=== PATIENT | female | born 1990 | race Caucasian/White ===

== ENCOUNTER 2016-09-05 19:34 | Emergency (ER) | payer MEDICAID ==
--- NOTE | 2016-09-05 20:11 | ER Document Report ---
ED Medical Screen (RME) - General Stated Complaint: VAGINAL BLEEDING Notes: 26 yo female c/o 10 wks , c/o lower abdominal cramping and vaginal bleeding x 2 days. - Related Data Allergies/Adverse Reactions: ibuprofen Adverse Reaction (Intermediate, Verified 01/21/14 14:21) Migraine Past Medical History Past Surgical History: Reports: Hx Section - Immunizations Immunizations up to date: Yes Hx Diphtheria, Pertussis, Tetanus Vaccination: Yes
[2016-09-05] MEDS ORDERED: OXYCODONE-ACETAMINOPHEN 5-325 MG TABLET PO ONE (20:12)
[2016-09-05 20:47] LABS: ABSOLUTE BASOPHILS # (AUTO) 0.1 10^3/uL (0.0-0.2); ABSOLUTE EOSINOPHILS # (AUTO) 0.1 10^3/uL (0.0-0.6); ABSOLUTE LYMPHOCYTES (AUTO) 2.5 10^3/uL (0.5-4.7); ABSOLUTE NEUT (AUTO) 10.6 10^3/uL (1.7-8.2); BASOPHILS % (AUTO) 0.4 % (0-2); HEMATOCRIT 35.5 % (36.0-47.0); HEMOGLOBIN 11.7 g/dL (12.0-15.5); HGB HCT DIFFERENCE -0.4; LYMPHOCYTES % (AUTO) 17.3 % (13-45); MEAN CORPUSCULAR HEMOGLOBIN 27.4 pg (27.0-33.4); MEAN CORPUSCULAR HGB CONC 32.9 g/dL (32.0-36.0); MEAN CORPUSCULAR VOLUME 83 fl (80-97); MONOCYTES % (AUTO) 6.7 % (3-13); RED BLOOD COUNT 4.26 10^6/uL (3.72-5.28); RED CELL DISTRIBUTION WIDTH 14.4 % (11.5-14.0); SEGMENTED NEUTROPHILS % (AUTO) 74.6 % (42-78); WHITE BLOOD COUNT 14.2 10^3/uL (4.0-10.5)
[2016-09-05] MEDS ORDERED: ONDANSETRON HCL INJ/PF 4 MG/2 ML SDV IV ONE (22:34)
[2016-09-05] MEDS ORDERED: MORPHINE SULFATE 10 MG/ML INJ IV ONE (22:34)
[2016-09-05] MEDS ORDERED: NORMAL SALINE 1000 ML 1,000 ML IV ONE (22:34)
--- NOTE | 2016-09-05 22:39 | ER Document Report ---
ED GI/ - General Time seen by provider: 22:15 Mode of Arrival: Ambulatory Information source: Patient TRAVEL OUTSIDE OF THE [place] IN LAST 30 DAYS: No - HPI Patient complains to provider of: Abdominal pain, , Vaginal bleeding Onset: Yesterday Timing/Duration: Sudden Quality of pain: Cramping Location: Suprapubic Menstrual period history: <LIN HYATT - Last Filed: 09/06/16 00:17> <VINCE CROWDER - Last Filed: 09/06/16 05:10> - General Chief Complaint: Vaginal Bleeding Stated Complaint: VAGINAL BLEEDING Notes: Patient is a 26 year old female presenting to the emergency department complaining of vaginal bleeding. Patient states she is 10.5 weeks . Patient states she was seen at another emergency department for some abdominal cramping about 2 weeks prior to day. Patient states she was given antibiotics for some type of vaginal infection; patient was not specific in details. Patient states that her symptoms have gotten worse since then and that she still has some cramping along with the vaginal bleeding. Patient states that her bleeding was light yesterday and today she has "gone through almost a whole bag of pads." Patient states that her bleeding is clots and she has never experienced this type of bleeding before. Patient has brought some of the clots with her to the ED. Patient is allergic to ibuprofen. Patient states she has given to 4 children and has never had any symptoms like this with her previous pregnancies. Patient states she has a history of anemia when she was younger. (LIN HYATT) - Related Data Allergies/Adverse Reactions: ibuprofen Adverse Reaction (Intermediate, Verified 01/21/14 14:21) Migraine Past Medical History - General Information source: Patient - Social History Smoking Status: Current Every Day Smoker Family History: None Patient has suicidal ideation: No Patient has homicidal ideation: No Past Surgical History: Reports: Hx Section - Immunizations Immunizations up to date: Yes Hx Diphtheria, Pertussis, Tetanus Vaccination: Yes <LIN HYATT - Last Filed: 09/06/16 00:17> <VINCE CROWDER - Last Filed: 09/06/16 05:10> - Medical History Notes: anemia as a child (LIN HYATT) Review of Systems - Review of Systems Constitutional: No symptoms reported EENT: No symptoms reported Cardiovascular: No symptoms reported Respiratory: No symptoms reported Gastrointestinal: See HPI, Abdominal pain Genitourinary: No symptoms reported Female Genitourinary: See HPI, , Vaginal bleeding Musculoskeletal: No symptoms reported Skin: No symptoms reported Hematologic/Lymphatic: No symptoms reported Neurological/Psychological: No symptoms reported -: Yes All other systems reviewed and negative <LIN HYATT - Last Filed: 09/06/16 00:17> Physical Exam - Vital signs Interpretation: Normal - General General appearance: Alert, Other - appears uncomfortable In distress: Mild - HEENT Head: Normocephalic, Atraumatic Eyes: Normal Pupils: PERRL Mucous membranes: Normal - Respiratory Respiratory status: No respiratory distress Chest status: Nontender Breath sounds: Normal Chest palpation: Normal - Cardiovascular Rhythm: Regular Heart sounds: Normal auscultation Murmur: No - Abdominal Inspection: Normal Distension: No distension Bowel sounds: Normal Tenderness: Tender - suprapubic tenderness to palpation Organomegaly: No organomegaly - Back Back: Normal, Nontender - no CVA tenderness - Extremities General upper extremity: Normal inspection, Normal ROM, Normal strength General lower extremity: Normal inspection, Normal ROM, Normal strength - Neurological Neuro grossly intact: Yes Cognition: Normal Orientation: AAOx4 Deb Coma Scale Eye Opening: Spontaneous Deb Coma Scale Verbal: Oriented Deb Coma Scale Motor: Obeys Commands Deb Coma Scale Total: 15 Speech: Normal - Psychological Associated symptoms: Normal affect, Normal mood - Skin Skin Temperature: Warm Skin Moisture: Dry <LIN HYATT - Last Filed: 09/06/16 00:17> Course - Laboratory Result Diagrams: 09/05/16 20:20 09/05/16 20:20 <LIN HYATT - Last Filed: 09/06/16 00:17> - Laboratory Result Diagrams: 09/05/16 20:20 09/05/16 20:20 <VINCE CROWDER - Last Filed: 09/06/16 05:10> - Re-evaluation Re-evalutation: 09/06/16 Patient was recently treated for urinary tract infection. Today she has flank pain, nausea, and blood in her urine as well as grossly infected urine. Patient will be given Rocephin and started on cefdinir. Patient is feeling better after fluids and medication. No further bleeding. She will be discharged home and is to follow-up with her [facility] [facility]. Ultrasound showing a well- appearing fetus. Return if any worsening or concerning symptoms. Understands agrees with plan. (VINCE CROWDER) - Vital Signs Vital signs: Temp Pulse Resp BP Pulse Ox 98.2 F 87 16 114/69 99 09/06/16 03:02 09/06/16 03:02 09/06/16 03:02 09/06/16 03:02 09/06/16 03:02 - Laboratory Laboratory results interpreted by me: 09/05/16 09/05/16 09/05/16 20:20 20:20 20:20 WBC 14.2 H Hgb 11.7 L Hct 35.5 L RDW 14.4 H Absolute Neutrophils 10.6 H Potassium 3.5 L Glucose 64 L Total Protein 6.1 L Albumin 3.3 L Beta HCG, Quant 30577.00 H Urine Protein Urine Blood Ur Leukocyte Esterase Urine Ascorbic Acid Urine HCG, Qual POSITIVE H 09/05/16 23:20 WBC Hgb Hct RDW Absolute Neutrophils Potassium Glucose Total Protein Albumin Beta HCG, Quant Urine Protein 100 H Urine Blood LARGE H Ur Leukocyte Esterase MODERATE H Urine Ascorbic Acid 20 H Urine HCG, Qual (LIN HYATT) (VINCE CROWDER) Discharge <LIN HYATT - Last Filed: 09/06/16 00:17> <VINCE CROWDER - Last Filed: 09/06/16 05:10> - Discharge Clinical Impression: Pyelonephritis Qualifiers: Weeks of gestation: 10 weeks Qualified Code(s): Z3A.10 - 10 weeks gestation of Condition: Stable Disposition: HOME, SELF-CARE Instructions: Pyelonephritis ([facility]), ([facility]) Prescriptions: Cefdinir [Omnicef 300 mg Capsule] 1 cap PO BID #28 capsule Referrals: GUILLERMINA ANDERSON MD [Primary Care Provider] - Follow up as needed Scribe Attestation: 09/06/16 05:10 I personally performed the services described in the documentation, reviewed and edited the documentation which was dictated to the scribe in my presence, and it accurately records my words and actions. (VINCE CROWDER) Scribe Documentation <LIN HYATT - Last Filed: 09/06/16 00:17> <VINCE CROWDER - Last Filed: 09/06/16 05:10> - Scribe Written by Scribe:: ALBERT ALBRECHT 09/06/16 0225 Acting as scribe for: Dr. Crowder (LIN HYATT) (VINCE CROWDER
[2016-09-05 23:18] LABS: ALANINE AMINOTRANSFERASE 10 U/L (9-52); ALBUMIN 3.3 g/dL (3.5-5.0); ALKALINE PHOSPHATASE 73 U/L (38-126); ANION GAP 12 (5-19); ASPARTATE AMINO TRANSFERASE 17 U/L (14-36); BILIRUBIN,TOTAL 0.2 mg/dL (0.2-1.3); BLOOD UREA NITROGEN 11 mg/dL (7-20); CALCIUM 8.7 mg/dL (8.4-10.2); CARBON DIOXIDE 25 mmol/L (22-30); CHLORIDE 104 mmol/L (98-107); CREATININE RESULT 0.52 mg/dL (0.52-1.25); GLUCOSE 64 mg/dL (75-110); POTASSIUM 3.5 mmol/L (3.6-5.0); SODIUM 140.8 mmol/L (137-145); TOTAL PROTEIN 6.1 g/dL (6.3-8.2)
[2016-09-06 00:05] LABS: APPEARANCE,URINE CLOUDY; BILIRUBIN,URINE NEGATIVE (NEGATIVE); GLUCOSE, URINE NEGATIVE (NEGATIVE); KETONES,URINE NEGATIVE (NEGATIVE); LEUKOCYTE ESTERASE,URINE MODERATE (NEGATIVE); NITRITE,URINE NEGATIVE (NEGATIVE); PROTEIN,URINE 100 mg/dL (NEGATIVE); UROBILINOGEN,URINE NEGATIVE mg/dL (<2.0)
[2016-09-06] MEDS ORDERED: CEFTRIAXONE 1 GM/D5W RTU 50 ML IV ONE (00:18)
[2016-09-06] MEDS ORDERED: NORMAL SALINE 1000 ML 1,000 ML IV ONE (01:27)
[2016-09-06] MEDS ORDERED: MORPHINE SULFATE 10 MG/ML INJ IV ONE (01:45)
[2016-09-06 03:03] VITALS: BP 114/69
== END 2016-09-06 03:45 | disposition home or self-care (01) ==
LOC: ER 19:34
DX: O23.01 Infections of kidney in pregnancy, first trimester (principal); N12 Tubulo-interstitial nephritis, not specified as acute or chronic; O20.9 Hemorrhage in early pregnancy, unspecified; O99.331 Smoking (tobacco) complicating pregnancy, first trimester; Z3A.10 10 weeks gestation of pregnancy; Z88.6 Allergy status to analgesic agent
CPT/HCPCS: 96376; 99284; 96361; 96375; 96365; 86900; 86901; 36415; 87040; 87086; 86850; 84702; 85025; 81025; 87088; 80053; 81001; 87186; 76817; 93976; J2270 ×2; J2405; J7030; J0696

== ENCOUNTER 2017-03-03 00:21 | Inpatient (IN) | payer MEDICAID ==
[2017-03-03 00:57] LABS: AMNISURE (ROM) POSITIVE (NEGATIVE)
[2017-03-03 00:58] LABS: APPEARANCE,URINE SLIGHTLY-CLOUDY; BILIRUBIN,URINE NEGATIVE (NEGATIVE); GLUCOSE, URINE NEGATIVE (NEGATIVE); KETONES,URINE NEGATIVE (NEGATIVE); LEUKOCYTE ESTERASE,URINE LARGE (NEGATIVE); NITRITE,URINE NEGATIVE (NEGATIVE); PROTEIN,URINE NEGATIVE (NEGATIVE); URINE SPECIFIC GRAVITY 1.003; UROBILINOGEN,URINE NEGATIVE mg/dL (<2.0)
[2017-03-03] MEDS ORDERED: MAGNESIUM SULFATE 4 GM/100 ML RTUPB IV ONE (01:16)
[2017-03-03] MEDS ORDERED: BETAMET ACET/BETAMET NA INJ 6 MG/1 ML IM ONE (01:16)
[2017-03-03] MEDS ORDERED: BETAMET ACET/BETAMET NA INJ 6 MG/1 ML ONE ×2 (01:16→01:21)
[2017-03-03] MEDS ORDERED: AMPICILLIN SOD INJ 2 GM VIAL ONE ×4 (01:17→22:01)
[2017-03-03] MEDS ORDERED: MAGNESIUM SULFATE 1 GM/25 ML IV ONE (01:21)
[2017-03-03 01:42] LABS: URINE BARBITURATES SCREEN NEGATIVE; URINE METHADONE SCREEN NEGATIVE; URINE PHENCYCLIDINE SCREEN NEGATIVE
[2017-03-03 02:01] LABS: URINE OPIATES LOW UNCONFIRMED POSITIVE
[2017-03-03] MEDS: MAGNESIUM SULFATE 20 GM/500 ML RTUINJ IV PRN ×2 (02:20→04:47)
[2017-03-03] MEDS ORDERED: AMPICILLIN SOD INJ 2 GM VIAL IV PRN (02:30)
[2017-03-03] MEDS ORDERED: AMPICILLIN SODIUM 2 GM in NORMAL SALINE 100 ML IV ONE (02:30)
--- NOTE | 2017-03-03 02:39 | RADIOLOGY REPORT (SQ) ---
EXAM DESCRIPTION: U/S OB 14+ TA/1 GEST W/DOPPLER COMPLETED DATE/TIME: 03/03/2017 2:01 am REASON FOR STUDY: no care COMPARISON: 09.05.16 TECHNIQUE: Static and Dynamic grayscale imaging performed of gravid uterus using transabdominal appr oac. Additional selected color Doppler and spectral images recorded. All stored on PACS. LIMITATIONS: None. FINDINGS: EGA: 33w 1d TOMASA: 04/20/17 EFW: 1872g +/- 277g PERCENTILE: Not available. LVP/MVP: 1.7 cm. PLACENTA: Anterior. PRESENTATION: Cephalic. ANATOMY: HEART RATE: 125 beats per minute. FOUR CHAMBER HEART: Visualized. THREE VESSEL CORD: Yes. CORD INSERTION: Not visualized. KIDNEYS AND BLADDER: Visualized. Appear normal. STOMACH: Visualized. Appears normal. SPINE: Normal as visualized. BRAIN AND LATERAL VENTRICLES: Not visualized. OTHER: No other significant finding. MATERNAL ADNEXA: Maternal ovaries not visualized. CERVICAL LENGTH: 3.6 cm Closed. OTHER: No other significant finding. IMPRESSION: Severe oligohydramnios. Maximum vertical pocket measures 1.7 cm. LIVING INTRAUTERINE . ESTIMATED GESTATIONAL AGE 33 weeks and 1 day Limited anatomic survey ; intracranial structures and cord insertion are not well visualized. Trimester of : Third trimester - 28 weeks to delivery. TECHNICAL DOCUMENTATION: JOB ID: [id number] [employer]- All Rights Reserved
[2017-03-03 02:40] LABS: ABSOLUTE BASOPHILS # (AUTO) 0.1 10^3/uL (0.0-0.2); ABSOLUTE EOSINOPHILS # (AUTO) 0.1 10^3/uL (0.0-0.6); ABSOLUTE LYMPHOCYTES (AUTO) 2.7 10^3/uL (0.5-4.7); ABSOLUTE MONOCYTES (AUTO) 1.1 10^3/uL (0.1-1.4); ABSOLUTE NEUT (AUTO) 13.4 10^3/uL (1.7-8.2); BASOPHILS % (AUTO) 0.6 % (0-2); EOSINOPHILS % (AUTO) 0.6 % (0-6); HEMATOCRIT 36.2 % (36.0-47.0); HEMOGLOBIN 11.7 g/dL (12.0-15.5); HGB HCT DIFFERENCE -1.1; LYMPHOCYTES % (AUTO) 15.5 % (13-45); MEAN CORPUSCULAR HEMOGLOBIN 28.2 pg (27.0-33.4); MEAN CORPUSCULAR HGB CONC 32.3 g/dL (32.0-36.0); MEAN CORPUSCULAR VOLUME 87 fl (80-97); MONOCYTES % (AUTO) 6.1 % (3-13); RED BLOOD COUNT 4.15 10^6/uL (3.72-5.28); RED CELL DISTRIBUTION WIDTH 14.4 % (11.5-14.0); SEGMENTED NEUTROPHILS % (AUTO) 77.2 % (42-78); WHITE BLOOD COUNT 17.3 10^3/uL (4.0-10.5)
[2017-03-03 03:31] LABS: ADD HIVPANEL? YES
[2017-03-03] MEDS ORDERED: OXYTOCIN/NORMAL SALINE 20 UNIT/1,000 ML RTUINJ ONE ×2 (04:30→12:15)
[2017-03-03] MEDS: RINGERS SOLUTION,LACTATED 1,000 ML IV PRN ×2 (04:45→14:48)
[2017-03-03] MEDS: AMPICILLIN SODIUM 2 GM in NORMAL SALINE 100 ML IV SCH ×3 (08:26→22:08)
[2017-03-03 09:54] LABS: CHLAM PCR NOT DETECTED (NOT DETECT)
[2017-03-03] MEDS ORDERED: EPHEDRINE SULFATE INJ 50 MG/1 ML AMPULE ONE (12:09)
[2017-03-03] MEDS ORDERED: BUPIVACAINE HCL 0.25 % INJ/PF (2.5 MG/1 ML) 30 ML VIAL ONE (12:10)
[2017-03-03] MEDS ORDERED: FENTANYL/BUPIVACAINE/NS/PF 200 MCG/100 ML RTUINJ EPI ONE (12:10)
[2017-03-03] MEDS ORDERED: LIDOCAINE 1% INJ-PF (10 MG/ML) 30 ML SDV ONE (12:15)
[2017-03-03] MEDS ORDERED: MISOPROSTOL 0.2 MG TABLET ONE (12:16)
[2017-03-03] MEDS ORDERED: MEASLES,MUMPS&RUBELLA VACC/PF 0.5 ML VIAL SUBCUT PRN (19:06)
[2017-03-03] MEDS ORDERED: DIPH/PERTUSS(ACELL)/TETANUS VAC/PF 0.5 ML SYR (>=10YO) IM PRN (19:06)
[2017-03-03] MEDS ORDERED: ZOLPIDEM TARTRATE 5 MG TABLET PO PRN (19:06)
[2017-03-03] MEDS ORDERED: ACETAMINOPHEN WITH CODEINE #3 TABLET PO PRN ×2 (19:06)
[2017-03-03] MEDS ORDERED: BENZOCAINE/MENTHOL AEROSOL SPRAY 56 ML TOP PRN (19:06)
[2017-03-03] MEDS ORDERED: OXYTOCIN/NORMAL SALINE 20 UNIT/1,000 ML RTUINJ IV PRN (19:06)
[2017-03-03] MEDS ORDERED: DIBUCAINE 1% OINTMENT 28 GM TP PRN (19:06)
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
[2017-03-03] MEDS ORDERED: IBUPROFEN 800 MG TABLET PO SCH (22:00)
[2017-03-04] MEDS: AMPICILLIN SODIUM 2 GM in NORMAL SALINE 100 ML IV SCH (02:31)
[2017-03-04 07:21] LABS: HEMATOCRIT 32.3 % (36.0-47.0); HEMOGLOBIN 10.5 g/dL (12.0-15.5); HGB HCT DIFFERENCE -0.8; MEAN CORPUSCULAR HEMOGLOBIN 28.3 pg (27.0-33.4); MEAN CORPUSCULAR HGB CONC 32.6 g/dL (32.0-36.0); MEAN CORPUSCULAR VOLUME 87 fl (80-97); RED BLOOD COUNT 3.72 10^6/uL (3.72-5.28); RED CELL DISTRIBUTION WIDTH 14.4 % (11.5-14.0); WHITE BLOOD COUNT 19.9 10^3/uL (4.0-10.5)
[2017-03-04] MEDS: PRENATAL VITAMIN W-O CA NO5/FE FUMARATE/FA CAPSULE PO SCH (09:33)
[2017-03-04] MEDS: DOCUSATE SODIUM 100 MG CAPSULE PO SCH ×2 (09:34→17:24)
[2017-03-04] MEDS: SENNOSIDES/DOCUSATE 8.6-50 MG 1 EACH TABLET PO SCH (09:34)
[2017-03-04] MEDS: FERROUS SULFATE 325 MG TABLET PO SCH ×2 (09:35→17:24)
--- NOTE | 2017-03-04 14:14 | PDOC PROGRESS REPORT ---
Subjective-OB Subjective: Post Delivery Day:1 26 year old s/p ppd1. Ambulating and voiding without difficulty. Denies any needs at this time Physical Exam (OB) Vital Signs: Temp Pulse Resp BP Pulse Ox 97.6 F 87 17 116/71 100 03/04/17 08:16 03/04/17 08:16 03/04/17 08:16 03/04/17 08:16 03/04/17 08:16 Intake & Output 03/03/17 03/04/17 03/05/17 06:59 06:59 06:59 Intake Total 100 Balance 100 Weight 70.3 kg - General General Appearance: Appears well In distress: None - Episiotomy/Laceration Site Condition: N/A - Lochia Lochia Amount: Scant < 10 ml Lochia Color: Rubra/Red - Abdomen Description: Soft Hernia Present: No Fundal Description: Firm, Midline Fundal Height: u/u - u/2 - Respiratory Respiratory Status: No respiratory distress - Extremities Upper extremity: Normal inspection Lower extremities: Normal inspection - Neurological Cognition: Normal Orientation: AAOx4 - Psychological Associated symptoms: Normal affect, Normal mood Objective-Diagnostic Laboratory: 03/04/17 06:52 03/04/17 06:52 WBC 19.9 H RBC 3.72 Hgb 10.5 L Hct 32.3 L MCV 87 MCH 28.3 MCHC 32.6 RDW 14.4 H Plt Count 168 Assessment and Plan(PN) - Assessment and Plan (1) delivered vaginally, 1,750-1,999 grams, 35-36 completed weeks Is this a current diagnosis for this admission?: Yes (2) Insufficient care, delivered, current hospitalization Is this a current diagnosis for this admission?: Yes (3) premature rupture of membranes Qualifiers: PROM onset of labor timing: unspecified duration between rupture of membranes and onset of labor Qualified Code(s): O42.919 - premature rupture of membranes, unspecified as to length of time between rupture and onset of labor, unspecified trimester Is this a current diagnosis for this admission?: Yes (4) Acute blood loss anemia Is this a current diagnosis for this admission?: Yes - Time Spent with Patient Time with patient: Less than 15 minutes Medications reviewed and adjusted accordingly: Yes - Disposition Anticipated Discharge: Home Within: within 24 hours
[2017-03-04 15:37] LABS: HEPATITIS C VIRUS AB <0.1 s/co ratio (0.0-0.9)
--- NOTE | 2017-03-05 08:54 | PDOC PROGRESS REPORT ---
Subjective-OB Subjective: Post Delivery Day: 26 year old. Denies any needs at this time OOB in halls with FOB, said the baby cannot go home for possible 5 days, she took a pain medication when her water broke and it showed up on drug screen. Holding baby on rounds, FOB with pt, denies depression, goes to [facility], will make an appointment to see them, smokes 10 day but knows not to smoke around baby. Care at [facility]. Breast feeding but now pumping and dumping per nursery. Tearful when talking about baby and leaving her Physical Exam (OB) Vital Signs: Temp Pulse Resp BP Pulse Ox 98.2 F 58 L 16 109/64 100 03/05/17 08:07 03/05/17 08:07 03/05/17 08:07 03/05/17 08:07 03/05/17 08:07 Intake & Output 03/04/17 03/05/17 03/06/17 06:59 06:59 06:59 Intake Total 100 400 Balance 100 400 - Lochia Lochia Amount: Scant < 10 ml Lochia Color: Rubra/Red - Abdomen Description: Soft, Flat Hernia Present: No Fundal Description: Firm Fundal Height: u/u - u/2 Objective-Diagnostic Laboratory: 03/04/17 06:52 Assessment and Plan(PN) - Assessment and Plan (1) Acute blood loss anemia Is this a current diagnosis for this admission?: Yes (2) Insufficient care, delivered, current hospitalization Is this a current diagnosis for this admission?: Yes (3) delivered vaginally, 1,750-1,999 grams, 35-36 completed weeks Is this a current diagnosis for this admission?: Yes (4) premature rupture of membranes Qualifiers: PROM onset of labor timing: unspecified duration between rupture of membranes and onset of labor Qualified Code(s): O42.919 - premature rupture of membranes, unspecified as to length of time between rupture and onset of labor, unspecified trimester Is this a current diagnosis for this admission?: Yes - Time Spent with Patient Time with patient: Less than 15 minutes Smoking Education Provided: Over 3 minutes Medications reviewed and adjusted accordingly: Yes - Disposition Anticipated Discharge: Home Within: Other - home today, discussed making appt with [facility], no smoking around baby, no TCH or opiates. FOB states he is oing to throw them away Will repeat CBC today
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
[2017-03-05 09:19] LABS: HEMATOCRIT 33.3 % (36.0-47.0); HEMOGLOBIN 10.9 g/dL (12.0-15.5); HGB HCT DIFFERENCE -0.6; MEAN CORPUSCULAR HEMOGLOBIN 28.5 pg (27.0-33.4); MEAN CORPUSCULAR HGB CONC 32.8 g/dL (32.0-36.0); MEAN CORPUSCULAR VOLUME 87 fl (80-97); RED BLOOD COUNT 3.84 10^6/uL (3.72-5.28); RED CELL DISTRIBUTION WIDTH 14.4 % (11.5-14.0); WHITE BLOOD COUNT 12.2 10^3/uL (4.0-10.5)
--- NOTE | 2017-03-05 09:41 | Delivery Summary ---
Del Sum A-C Datetime Report Generated by CPN: 03/05/2017 09:41 DELIVERY PERSONNEL DELIVERY PERSONNEL: [phone] Delivery Doctor:: Naomi Ignacio MD Anesthesiologist:: Brandon Raphael MD Labor and Delivery Nurse:: Amanda Link RNtelecommunication engineer Nurse:: Lorena Dempsey RN Nursery Nurse:: Jillian Smith RN Nursery Nurse:: Tyra Reaves RN Engine Testing Supervisor/BRASSWIND INSTRUMENT REPAIRER: Pham Vang, ASSOCIATE PROFESSOR OF SURGERY MATERNAL INFORMATION Delivery Anesthesia: Epidural Medications After Delivery: Pitocin Drip 20 Units/1000ml NSS Estimated Blood Loss (ml): 200 Maternal Complications: None; Premature Rupture of Membranes Provider Comments: manual extraction of placenta performed secondary to evusion of umbilical cord. uterine exploration revealed no abnormalities post extraction LABOR SUMMARY EDC: 03/31/2017 00:00 No. Babies in Womb: 1 Attempted: Yes Labor Anesthesia: Epidural LABOR INFORMATION Reason for Induction: Premature Rupture of Membranes Onset of Labor: 03/03/2017 14:01 Complete Dilatation: 03/03/2017 18:34 Cervical Ripening Agents: Other Oxytocin: Induction Group B Beta Strep: unknown Group B Beta Strep: 1 NO GROUP B STREPTOCOCCUS RECOVERED Antibiotics # of Doses: 3 Antibiotics Time of Last Dose: 1440 Name of Antibiotic Given: ampicillan Steroids Given: Partial Course Reason Steroids Not Administered: Other MEMBRANES Membranes Rupture Method: Spontaneous Rupture of Membranes: 02/28/2017 01:00 Length of Rupture (hr): 89.75 Amniotic Fluid Color: Clear Amniotic Fluid Amount: Small Amniotic Fluid Odor: Normal STAGES OF LABOR Stage 1 hr: 4 Stage 1 min: 33 Stage 2 hr: 0 Stage 2 min: 11 Stage 3 hr: 0 Stage 3 min: 8 Total Time in Labor hr: 4 Total Time in Labor min: 52 VAGINAL DELIVERY Episiotomy: None Laceration Extension: N/A Laceration Type: None Sponge Count Correct: N/A Sharps Count Correct: N/A CSECTION DELIVERY Primary Indication: N/A Secondary Indication: N/A CSection Incision: N/A BABY A INFORMATION Delivery Date/Time: 03/03/2017 18:45 Method of Delivery: Vaginal Born in Route : No : Successful Forceps: N/A Vacuum Extraction: N/A Shoulder Dystocia : No PRESENTATION/POSITION BABY A Presentation: Cephalic Cephalic Presentation: Vertex Vertex Position: Right Occipital Anterior Breech Presentation: N/A PLACENTA INFORMATION BABY A Placenta Delivery Time : 03/03/2017 18:53 Placenta Method of Delivery: Manual Removal Placenta Status: Delivered SCORES BABY A Heart Rate 1 min: >100 bpm Resp Effort 1 min: Good Cry Reflex Irritability 1 min: Cough or Sneeze or Pulls Away Muscle Tone 1 min: Active Motion Color 1 min: Blue/Pale Resuscitation Effort 1 min: Tactile Stimulation SCORE 1 MIN: 8 Heart Rate 5 min: >100 bpm Resp Effort 5 min: Good Cry Reflex Irritability 5 min: Cough or Sneeze or Pulls Away Muscle Tone 5 min: Active Motion Color 5 min: Body Higden, Extremities Blue Resuscitation Effort 5 min: Tactile Stimulation SCORE 5 MIN: 9 INFANT INFORMATION BABY A Gestational Age at Delivery: 36.0 Gestational Status: Late - 34- 36.6 Weeks Outcome : Liveborn Infant Condition : Stable Sex: Female IDENTIFICATION BABY A Verification Date/Time: 03/03/2017 19:24 ID Band Number: [id number] Mother's Name Verified: Yes Infant RN Verifying Infant: RLatonya Dempsey, RN/ K. Nathanael, RN WEIGHT/LENGTH BABY A Infant Birthweight (gm): 2001 Weight (lb): 4 Infant Weight (oz): 7 Infant Length (in): 17.13 Infant Length (cm): 43.51 CORD INFORMATION BABY A No. Cord Vessels: 3 Nuchal Cord : N/A Cord Blood Taken: Yes-For Eval (Mom's Blood Type - or O+) Infant Suction: None ASSESSMENT BABY A Infant Complications: Multiple Late Decels Physical Findings at Delivery: Within Normal Limits Respirations: Appears Normal Skin to Skin: No System Operator/ALS Called : No Care By: Jillian Smith, RN Transferred To: Remains with Mother BABY B INFORMATION : N/A SIGNATURES Signature: with User ID: [email or web address]
[2017-03-05 09:53] VITALS: BP 116/71
[2017-03-05] MEDS: DOCUSATE SODIUM 100 MG CAPSULE PO SCH (10:01)
[2017-03-05] MEDS: FERROUS SULFATE 325 MG TABLET PO SCH (10:01)
[2017-03-05] MEDS: SENNOSIDES/DOCUSATE 8.6-50 MG 1 EACH TABLET PO SCH (10:01)
[2017-03-05] MEDS: PRENATAL VITAMIN W-O CA NO5/FE FUMARATE/FA CAPSULE PO SCH (10:01)
== END 2017-03-05 13:15 | disposition home or self-care (01) | DRG 774 ==
LOC: LC 00:21 → LR 01:36 → 2S 21:15
PROVIDERS: ADMIT Student in an Organized Health Care Education/Training Program; ATTEND Student in an Organized Health Care Education/Training Program
PROC: 10E0XZZ Delivery of Products of Conception, External Approach (ICD-10-PCS; principal; 2017-03-03)
PROC: 3E033VJ Introduction of Other Hormone into Peripheral Vein, Percutaneous Approach (ICD-10-PCS; 2017-03-03)
PROC: 4A1HXCZ Monitoring of Products of Conception, Cardiac Rate, External Approach (ICD-10-PCS; 2017-03-03)
DX: O42.013 Preterm premature rupture of membranes, onset of labor within 24 hours of rupture, third trimester (principal); O98.32 Other infections with a predominantly sexual mode of transmission complicating childbirth; D62 Acute posthemorrhagic anemia; O99.323 Drug use complicating pregnancy, third trimester; O99.02 Anemia complicating childbirth; O99.334 Smoking (tobacco) complicating childbirth; F17.210 Nicotine dependence, cigarettes, uncomplicated; O99.344 Other mental disorders complicating childbirth; F31.9 Bipolar disorder, unspecified; O34.211 Maternal care for low transverse scar from previous cesarean delivery; A60.00 Herpesviral infection of urogenital system, unspecified; O69.89X0 Labor and delivery complicated by other cord complications, not applicable or unspecified; O76 Abnormality in fetal heart rate and rhythm complicating labor and delivery; F11.90 Opioid use, unspecified, uncomplicated; Z88.6 Allergy status to analgesic agent; Z3A.36 36 weeks gestation of pregnancy; Z37.0 Single live birth
CPT/HCPCS: 36415; 76805; 80307; 81005; 84112; 85025; 85027; 86592; 86701; 86702; 86762; 86803; 86804; 86850; 86900; 86901; 87081; 87340; 87491; 87591; 88307; 93976; G0480; J0290; J0702; J2590; J3475; J3490